=== PATIENT | male | born 1945 | race Asian ===

== ENCOUNTER 2021-12-01 05:56 | Day surgery (SDC) | payer OTHER ==
[~2021-12-01] VITALS: Ht 152.4 cm; Wt 52.2 kg
[~2021-12-01 05:56] MED LIST: ALBU8.5H8 IH; BENZ200C53 PO; DUTA.5 PO; LISI5TAB PO; MONT-35 PO; ROSU20TA73 PO; SODIUM CHLORIDE 0.9% 1,000 ML IV ONE; TAMS-13 PO
[2021-12-01] MEDS ORDERED: LIDOCAINE 2% 30 ML JELLY TP ONE (05:57)
[2021-12-01] MEDS ORDERED: ALBUTEROL SULFATE 2.5 MG/0.5 ML NEB SOLUTION NEB ONE (05:57)
[2021-12-01] MEDS ORDERED: BENZOCAINE 20% 50 MCG/SPRAY 57 GM TP ONE (05:57)
[2021-12-01 06:36] LABS: COVID AG,FIA SOURCE NASOPHARYNGEAL
[2021-12-01] MEDS ORDERED: FentaNYL CITRATE PF 100 MCG/2 ML VIAL ONE (07:33)
[2021-12-01] MEDS ORDERED: MIDAZOLAM HCL 5 MG/ML VIAL ONE (07:33)
[2021-12-01] MEDS ORDERED: MethylPREDNISolone SOD SUCC 125 MG/2 ML VIAL IVP ONE (08:45)
[2021-12-01] MEDS ORDERED: MethylPREDNISolone SOD SUCC 125 MG/2 ML VIAL ONE (09:12)
[2021-12-01] MEDS ORDERED: OXYGEN THERAPY IH SCH (20:00)
== END 2021-12-01 10:50 | disposition home or self-care (01) ==
LOC: SURGERY 05:56
PROVIDERS: ATTEND Internal Medicine Critical Care Medicine
DX: R05.3 Chronic cough (principal); R04.2 Hemoptysis; J34.89 Other specified disorders of nose and nasal sinuses; J38.4 Edema of larynx; B37.0 Candidal stomatitis; I10 Essential (primary) hypertension; E78.00 Pure hypercholesterolemia, unspecified; Z20.822 Contact with and (suspected) exposure to COVID-19; Z79.899 Other long term (current) drug therapy
CPT/HCPCS: 31623; 31624; 71045; 87015; 87070; 87101; 87206; 87220; 87426; 88112; 88184; 88185; 88312; C9803; J2250; J2930; J3010; J7613